=== PATIENT | male | born 1945 | race Hispanic/Latino ===

== ENCOUNTER → 2021-11-03 | Outpatient (CLI) | payer OTHER ==
[~2021-11-03] VITALS: Ht 172.7 cm; Wt 77.6 kg
[~2021-11-03] MED LIST: REGADENOSON 0.4 MG/5 ML PF SYG IVP SCH
== END | disposition home or self-care (01) ==
LOC: SHCH 08:21
PROVIDERS: ATTEND Internal Medicine
DX: Z01.810 Encounter for preprocedural cardiovascular examination (principal); Z99.2 Dependence on renal dialysis
CPT/HCPCS: 78452; 96374; 93017; J2785; A9500 ×2

== ENCOUNTER 2021-12-26 05:54 | Day surgery (SDC) | payer OTHER ==
[2021-12-23 10:11] LABS: BASOPHILS % (AUTO) 0.8 % (0.0-5.0); EOSINOPHILS % (AUTO) 2.6 % (0.0-8.0); LYMPHOCYTES % (AUTO) 12.6 % (21.0-51.0); MEAN CORPUSCULAR HEMOGLOBIN 34.4 pg (27.0-33.0); MEAN CORPUSCULAR HGB CONC 33.9 g/dL (32.0-36.0); MEAN CORPUSCULAR VOLUME 101.4 fL (79-99); MONOCYTES % (AUTO) 11.2 % (3.0-13.0); NEUTROPHILS % (AUTO) 72.4 % (40.0-77.0); PLATELET COUNT (AUTO) 232 K/uL (130-400); RED BLOOD CELL COUNT(AUTO) 3.55 MIL/uL (4.50-6.20); RED CELL DISTRIBUTION WIDTH 14.3 % (11.0-15.5); WHITE BLOOD COUNT (AUTO) 7.3 K/uL (4.8-10.8)
[2021-12-23 10:15] LABS: CREATININE 7.1 mg/dL (0.5-1.5); POTASSIUM 3.9 mmol/L (3.5-5.1)
[2021-12-23 10:32] LABS: INR 0.96 (0.85-1.15); PROTHROMBIN TIME 10.5 SEC (9.6-11.6)
[2021-12-23 10:34] LABS: PARTIAL THROMBOPLASTIN TIME 27.3 SEC (26.3-35.5)
[2021-12-23 11:09] LABS: B-TYPE NATRIURETIC PEPTIDE 12 pg/mL (0-100)
[2021-12-25 09:13] VITALS: BP 160/88
[2021-12-26] VITALS (10 sets, daily range): BP systolic 114–142; BP diastolic 60–78
[~2021-12-26] VITALS: Ht 172.7 cm; Wt 74.5 kg
[~2021-12-26 05:54] MED LIST changes: +0.9% NACL 500ML IV.SOLN 500 ML IV SCH; +Auryxia PO; +CARV12.511 PO; +FERS325 PO; +FURO40TA5 PO; +LISI2.5T13 PO; -REGADENOSON 0.4 MG/5 ML PF SYG IVP SCH; +TRAZ-185 PO
[2021-12-26] MEDS ORDERED: 0.9%NACL 1000ML 1,000 ML IV ONE (06:35)
[2021-12-26] MEDS ORDERED: IOHEXOL 350 MG/ML 100ML INFUS..BTL IV ONE ×2 (07:17→07:54)
[2021-12-26] MEDS ORDERED: LIDOCAINE PF 100MG/5ML (2%) SYRINGE 5ML ONE (07:17)
[2021-12-26] MEDS ORDERED: IOHEXOL-350 50ML VIAL IV ONE (07:17)
[2021-12-26] MEDS ORDERED: NITROGLYCERIN 50MG VIAL ONE (07:17)
[2021-12-26] MEDS ORDERED: FENTANYL CITRATE PF 50 MCG/1 ML 2ML VIAL ONE (07:17)
[2021-12-26] MEDS ORDERED: MIDAZOLAM HCL 1 MG/ML 2ML VIAL ONE (07:17)
[2021-12-26] MEDS ORDERED: HEPARIN 10,000 UNIT/10ML (1,000 UNIT/ML) VIAL ONE (07:54)
[2021-12-26] MEDS ORDERED: CLOPIDOGREL 300MG TAB ONE (08:06)
[2021-12-26] MEDS ORDERED: ASPIRIN 325MG EC TAB PO ONE (08:06)
[2021-12-26] MEDS ORDERED: IOHEXOL-350 75 ML VIAL IV ONE (08:13)
[2021-12-26] MEDS ORDERED: ACETAMINOPHEN WITH CODEINE 1 TAB TAB PO PRN (09:30)
[2021-12-26] MEDS ORDERED: NITROGLYCERIN 50MG/D5W 250ML 1 BOT IV PRN (09:30)
== END 2021-12-26 13:46 | disposition home or self-care (01) ==
LOC: DAH 05:54
PROVIDERS: ATTEND Internal Medicine
DX: I25.10 Atherosclerotic heart disease of native coronary artery without angina pectoris (principal); I12.0 Hypertensive chronic kidney disease with stage 5 chronic kidney disease or end stage renal disease; N18.6 End stage renal disease; E78.5 Hyperlipidemia, unspecified; Z99.2 Dependence on renal dialysis; Z79.01 Long term (current) use of anticoagulants; Z98.890 Other specified postprocedural states; Z79.899 Other long term (current) drug therapy
CPT/HCPCS: 80048; 83880; 85025; 85610; 85730; 36415 ×2; 71045; 93005; 92978; 85347 ×2; 93454; C9600; C1887; C1894 ×2; C1760; C1769; C1753; C1874; C1725; Q9965; J3010; J7030; J2001; J1644 ×2; J2250; J3490; Q9967 ×2; A4215; A4222; A4221; A4663; A4216; A4606; A4223 ×3; 99156; 99157

== ENCOUNTER → 2022-02-10 | Outpatient (CLI) | payer OTHER ==
[~2022-02-10] MED LIST changes: -0.9% NACL 500ML IV.SOLN 500 ML IV SCH
== END | disposition home or self-care (01) ==
LOC: SHCH 13:02
PROVIDERS: ATTEND Student in an Organized Health Care Education/Training Program
DX: I25.10 Atherosclerotic heart disease of native coronary artery without angina pectoris (principal); I10 Essential (primary) hypertension
CPT/HCPCS: 93306

== ENCOUNTER → 2024-03-07 | Outpatient (CLI) | payer OTHER | END | disposition home or self-care (01) | LOC: SHCH 15:18 | PROVIDERS: ATTEND Student in an Organized Health Care Education/Training Program | DX: I73.9 Peripheral vascular disease, unspecified (principal) | CPT/HCPCS: 93925 ==

== ENCOUNTER → 2024-05-17 | Outpatient (CLI) | payer OTHER ==
--- NOTE | 2024-05-18 16:21 | HMCSR ---
APPROVED REPORT EXAM: Two-dimensional and M-mode echocardiogram with Doppler and color Doppler. INDICATION ICD: R06.02 Shortness of breath 2D Dimensions RVDd4.6 cmLVEF(%)57.8 (>50%)LVED Vol(simp.)111.0 mL IVSd1.0 (0.7-1.1cm)FS(%)30 %LVES Vol(simp.)25.0 mL LVDd4.4 (3.8-5.6cm)LA (2D)3.4 (1.6-4.0cm)LVEF(%, simp.)78 % PWd1.0 (0.7-1.1cm)Ao Root(2D)3.5 (2.0-3.7cm) IVSs1.3 cmLVOT diam2.0 (1.8-2.4cm) LVDs3.1 (2.5-4.0cm)IVC diam2.3 cm PWs1.0 cm M-Mode Dimensions EPSS0.7 cm LA (MM)4.2 (1.6-4.0cm) Ao Root(MM)2.8 (2.0-3.7cm) Aortic Valve AoV Vmax1.1 m/Rodriguez Peak GR5.2 mmHgLVOT Vmax1.0 m/s AoV VTI0.2 mAo Mean GR3.2 mmHgLVOT VTI0.24 m DWAYNE (VMAX)2.9 cm2AVA (VTI) 2.9 cm2 Mitral Valve MV E Vmax56.7 cm/sDECEL Dkez760 ms MV A Vmax78.7 cm/sP 1/2 T62 ms E/A ratio0.7MVA (PHT)3.6 cm2 TDI E/E' Medial8.1E/E' Lateral5.2 Medial E' Peak V7.00 cm/sLateral E' Peak V11.00 cm/s Pulmonary Valve PV Vmax1.5 m/s Tricuspid Valve RAP (EST) 8 mmHgRVSP8.0 mmHg Left Ventricle The left ventricle is normal size. There is normal left ventricular wall thickness. The LVEF is > 65% . Left ventricular filling pattern is normal for age. Right Ventricle The right ventricle is normal size. The right ventricular systolic function is normal. Atria The left atrium size is normal. The right atrium is borderline dilated. Aortic Valve The aortic valve is normal in structure. No aortic regurgitation is present. There is no aortic valvu lar stenosis. Mitral Valve The mitral valve is normal in structure. There is no mitral valve regurgitation noted. There is no mi tral valve stenosis. Tricuspid Valve The tricuspid valve is normal in structure. There is trace of tricuspid valve regurgitation noted. Pulmonic Valve The pulmonary valve is normal in structure. There is trace of pulmonic valvular regurgitation. Great Vessels The aortic root is normal in size. IVC is dilated and collapses >50% with inspiration. Pericardium There is no pericardial effusion. Other Information Quality : Adequate Conclusion The left ventricle is normal size. The LVEF is > 65%. Left ventricular filling pattern is normal for age. The right ventricle is normal size. The right ventricular systolic function is normal. The left atrium size is normal. The right atrium is borderline dilated. IVC is dilated and collapses >50% with inspiration. There is no pericardial effusion.
== END | disposition home or self-care (01) ==
LOC: RAH 14:58
PROVIDERS: ATTEND Student in an Organized Health Care Education/Training Program
DX: R06.02 Shortness of breath (principal)
CPT/HCPCS: 93306